=== PATIENT | male | born 1950 | race Caucasian/White ===

== ENCOUNTER 2024-08-02 05:35 | Observation (INO) ==
[~2024-08-02 05:35] MED LIST: NS 0.45% 1000 ml BAG 1,000 ML IV SCH; Naloxone 0.4 mg VIAL 0.4 mg/ml 1 ml VIAL IV PRN; Ondansetron 4 mg VIAL 2 MG/ML 2 ml VIAL IV PRN; ROPIVACAINE 5 MG/ML 30 ML BTL (0.5%) ONE
[2024-08-02] MEDS ORDERED: ceFAZolin 2 GM PREMIX 2 GM/50 ML BAG ONE (06:08)
[2024-08-02] MEDS ORDERED: Tranexamic Acid 1 GM/100ML BAG 2,000 MG/200 ML BAG IV ONE (06:08)
[2024-08-02] MEDS ORDERED: fentaNYL 100 mcg/2 ml 50 MCG/ML VIAL ONE ×3 (06:12→10:20)
[2024-08-02] MEDS ORDERED: Phenylephrine IV 10 MG/ML 1 ml VIAL ONE ×2 (06:13→06:27)
[2024-08-02] MEDS ORDERED: Midazolam 2 mg/2 ml VIAL 1 mg/ml 2 ml VIAL (2 mg) ONE (06:13)
[2024-08-02 06:24] LABS: INR 1.24 (0.85-1.14)
[2024-08-02 06:29] LABS: Rapid COVID-19 Molecular Undetected (Undetected)
[2024-08-02] MEDS ORDERED: Propofol 10 MG/ML 20 ML BTL ONE (06:32)
[2024-08-02] MEDS ORDERED: Midazolam 5 mg/5 ml VIAL 1 mg/ml 5 ml VIAL (5 mg) ONE (06:36)
[2024-08-02] MEDS ORDERED: ROPIVACAINE 5 MG/ML 30 ML BTL (0.5%) ONE (06:36)
[2024-08-02] MEDS ORDERED: Lidocaine 2% PF 5 ML VIAL ONE (07:05)
[2024-08-02] MEDS ORDERED: Dexamethasone IV 4 MG/ML VIAL 1 ml VIAL ONE (07:05)
[2024-08-02] MEDS ORDERED: Ondansetron 4 mg VIAL 2 MG/ML 2 ml VIAL ONE (07:05)
[2024-08-02] MEDS ORDERED: Rocuronium 50 mg VIAL 10 mg/ml 5 ml VIAL (50 mg) ONE (07:05)
[2024-08-02] MEDS ORDERED: Ondansetron ODT 4 mg TAB 4 MG TAB PO PRN (07:51)
[2024-08-02] MEDS ORDERED: Calcium Carb (TUMS) 500 mg CHEW TAB PO PRN (07:51)
[2024-08-02] MEDS ORDERED: Lactulose 30 ml UDC PO PRN (07:51)
[2024-08-02] MEDS ORDERED: Morphine 2 MG/ML SYRINGE IV PRN (07:51)
[2024-08-02] MEDS ORDERED: Magnesium Hydroxide LIQ 30 ML UDC PO PRN (07:51)
[2024-08-02] MEDS ORDERED: HYDROmorphone 0.5 MG/0.5 ML SYRINGE ONE ×2 (08:21→08:40)
[2024-08-02] MEDS: fentaNYL 100 mcg/2 ml 50 MCG/ML VIAL IV PRN (10:53)
[2024-08-02] MEDS: Buffered Lidocaine 1% SYRIN 1 ml INTRADERM ONE (10:55)
[2024-08-02] MEDS: Acetaminophen IV 1 GM/100ML 1,000 MG/100 ML BAG IV ONE (10:55)
[2024-08-02] MEDS: Lactated Ringers 1000 ml BAG 1,000 ML IV SCH ×2 (10:55→11:59)
[2024-08-02] MEDS: Vitamin THERAPEUTIC TAB PO SCH (12:06)
[2024-08-02] MEDS: Magnesium Hydroxide LIQ 30 ML UDC PO SCH (12:06)
[2024-08-02] MEDS: Dextran 70/Hypromellose Tears Eye Drops 15 ml BTL (for Artificials Tears) BOTH EYES PRN (12:14)
[2024-08-02] MEDS: Erythromycin OPTH OINT APPLIC OINT RIGHT EYE SCH (14:07)
[2024-08-02] MEDS: Ondansetron 4 mg VIAL 2 MG/ML 2 ml VIAL IV PRN (14:59)
[2024-08-02] MEDS: ceFAZolin 2 GM PREMIX 2 GM/50 ML BAG IV SCH (16:35)
[2024-08-03 05:53] LABS: Hematocrit 40.4 % (38-53); Hemoglobin 13.8 g/dL (13.2-16.3); Platelet Count 484 10^3/uL (150-450)
[2024-08-03 06:24] LABS: Calcium 8.1 mg/dL (8.6-10.3); Creatinine, Serum 1.03 mg/dL (0.67-1.17); eGFR CKD-EPI 76.7 (>60)
[2024-08-03 10:26] VITALS: BP 144/91
== END 2024-08-03 13:27 | disposition home or self-care (01) ==
LOC: OR 05:35 → SSU 05:35
PROVIDERS: ADMIT Orthopaedic Surgery Adult Reconstructive Orthopaedic Surgery; ATTEND Orthopaedic Surgery Adult Reconstructive Orthopaedic Surgery